=== PATIENT | female | born 1955 | race Caucasian/White ===

== ENCOUNTER 2018-08-04 10:53 | Inpatient (IN) ==
--- NOTE | 2018-08-04 11:15 | ED ---
HPI General Chief Complaint: Shortness of Breath/Dyspnea Stated Complaint: SOB/resp complaint Time Seen by Provider: 08/04/18 11:08 Source: patient Mode of arrival: ambulatory Limitations: no limitations History of Present Illness 63-year-old female states over the past couple days she has had cough and congestion that is led to shortness of breath. She states she has been smoker for multiple years but has not been diagnosed with COPD. She states she has not had inhalers before. She denies any other concurrent complaints at this time. She denies sick contacts. She states she feels worse when she moves around. She denies other modifying factors. She states the nasal drainage just turned dark yellow. Related Data Home Medications Medication Instructions Recorded Confirmed No Known Home Medications 08/04/18 08/04/18 Allergies Allergy/AdvReac Type Severity Reaction Status Date / Time crab Allergy Severe HIVES, Unverified 06/16/17 21:59 DIFFICULTY BREATHING shellfish derived Allergy Severe HIVES, Unverified 06/16/17 21:59 DIFFICULTY BREATHING shrimp Allergy Severe HIVES, Unverified 06/16/17 21:59 DIFFICULTY BREATHING Review of Systems ROS: all other systems reviewed are negative PMFSH History History Provided By: Patient (Denies medical history or medications, states only surgery was a perianal abscess multiple years ago ) Medical History Medical History Patient denies medical problems (Acute) Social History Social History Substance History: Active Abuse Second Hand Smoke Exposure: No Smoking Status: Heavy tobacco smoker Tobacco Type: Cigarettes How Often Do You Have a Drink Containing Alcohol: 4 or more times a week Exam Narrative Exam Narrative: GENERAL: 63 y/o female in no apparent distress SKIN: Focused skin assessment warm/dry. HEAD: Atraumatic. Normocephalic. EYES: Pupils equal and round. No scleral icterus. No injection or drainage. ENT: No nasal bleeding or discharge. Mucous membranes pink and moist. NECK: Trachea midline. CARDIOVASCULAR: Regular rate and rhythm. RESPIRATORY: No accessory muscle use. Faint expiratory wheezing bilaterally. GASTROINTESTINAL: Abdomen soft, non-tender, nondistended. MUSCULOSKELETAL: No obvious deformities. No clubbing. No cyanosis. No edema. NEUROLOGICAL: Awake and alert. Motor grossly within normal limits. Normal speech. PSYCHIATRIC: Appropriate mood and affect; insight and judgment normal. Course Reevaluation(s) Reevaluation #1: Given chest x-ray will check blood work and CT to further evaluate Reevaluation #2: Workup shows critical hyponatremia and pneumonia. Given antibiotics and will admit for further care. Patient updated and agrees to plan Consultations Consultation #1: dr washington agrees to admit Initial Documented Vital Signs Temperature 98.6 F 08/04/18 11:01 Pulse Rate 99 H 08/04/18 11:01 Respiratory Rate 30 H 08/04/18 11:01 Blood Pressure 200/93 H 08/04/18 11:01 Pulse Oximetry 94 L 08/04/18 11:01 Last Documented Vital Signs Temperature 98.6 F 08/04/18 11:01 Pulse Rate 92 H 08/04/18 13:00 Respiratory Rate 20 08/04/18 13:00 Blood Pressure 200/93 H 08/04/18 11:01 Pulse Oximetry 93 L 08/04/18 13:00 Medical Decision Making [facility] Narrative Medical decision making narrative: Will check chest x-ray, influenza and dose with prednisone and DuoNeb and reevaluate Medical Screen Exam Complete: Yes Emergency Medical Condition: Yes Differential Diagnosis Differential Diagnosis: Reactive airway disease, pneumonia, URI Lab Data Lab results reviewed: Yes I reviewed the patient's lab results. Result diagrams: 08/04/18 12:45 08/04/18 12:45 Lab Results 08/04/18 08/04/18 08/04/18 Range/Units 12:45 12:45 12:45 WBC 14.8 H (4.0-11.0) th/mm3 RBC 5.06 (4.00-5.30) mil/mm3 Hgb 16.6 H (11.6-15.3) gm/dL Hct 48.1 H (35.0-46.0) % MCV 95.1 (80.0-100.0) fL MCH 32.8 (27.0-34.0) pg MCHC 34.5 (32.0-36.0) % RDW 13.5 (11.6-17.2) % Plt Count 254 (150-450) th/mm3 MPV 7.3 (7.0-11.0) fL Prelim Diff (Auto) Slide review pending Neut % (Auto) 86.2 H (16.0-70.0) % Lymph % (Auto) 6.4 L (9.0-44.0) % [place] % (Auto) 7.1 (0.0-8.0) % Eos % (Auto) 0.0 (0.0-4.0) % Baso % (Auto) 0.3 (0.0-2.0) % Neut # (Auto) 12.7 H (1.8-7.7) th/mm3 Lymph # (Auto) 1.0 (1.0-4.8) th/mm3 [place] # (Auto) 1.1 H (0.0-0.9) th/mm3 Eos # (Auto) 0.0 (0.0-0.4) th/mm3 Baso # (Auto) 0.0 (0.0-0.2) th/mm3 WBC Differential Manual diff final Seg Neuts % (Manual) 75 H (16-70) % Band Neuts % (Manual) 19 H (0-6) % Lymphocytes % (Manual) 4 L (9-44) % Monocytes % (Manual) 2 (0-8) % Abs Neuts (Manual) 13.9 H (1.8-7.7) th/mm3 Differential Comment . Platelet Estimate Normal (Normal) Platelet Morphology Normal (Normal) PT 10.1 (9.8-11.6) sec INR 1.0 Ratio APTT 27.3 (24.3-30.1) sec Sodium 121 L* (136-145) meq/L Potassium 4.2 (3.5-5.1) meq/L Chloride 82 L (98-107) meq/L Carbon Dioxide 22.9 (21.0-32.0) meq/L Anion Gap 16 H (5-15) meq/L BUN 5 L (7-18) mg/dL Creatinine 0.51 (0.50-1.00) mg/dL Estimated GFR Greater than 89 (>89) mL/min Random Glucose 108 H (74-106) mg/dL Calcium 8.8 (8.5-10.1) mg/dL Imaging Data Attestation: I personally reviewed and interpreted this imaging study as follows : Radiologist's impression: Chest X-Ray 08/04/18 11:10 CONCLUSION: Partial right middle lobe collapse. I have no other prior films comparison. Serial films resolution are suggested. Chest CTA 08/04/18 12:02 CONCLUSION: 1. No evidence of pulmonary embolism. 2. Focal alveolar consolidation is noted involving the right anterior midlung field likely within the right middle lobe consistent with probable lobar pneumonia. Clinical correlation is recommended. 3. Scattered emphysematous changes bilaterally. 4. Cardiomegaly and coronary artery calcifications. 5. 2 low-density lesions within the left lobe of the liver consistent with probable tiny cysts. Discharge Plan Discharge Disposition Patient Disposition: 30 Still Patient Discharge Details Diagnosis: Acute hyponatremia, Pneumonia Physicians Team ED Provider: Manisha Murdock Primary Care Provider: Primary Care Wendi Cordero Rxs /Orders / Referrals /Forms Prescriptions: No Action No Known Home Medications RF: 0 Status ED Status: Pending Admission
--- NOTE | 2018-08-04 11:57 | XR ---
EXAM DATE: 08/04/2018 11:10 AM EDT AGE/SEX: 63 years / Female INDICATIONS: . Short of breath and cough. CLINICAL DATA: This is the patient's initial encounter. Patient reports that signs and symptoms have been present for 3 days and indicates a pain score of 0/10. MEDICAL/SURGICAL HISTORY: . Current smoker. None. COMPARISON: No prior exams available for comparison. FINDINGS: Partial right middle lobe collapse. Left lung clear. No pleural effusion, infiltrate or failure. The heart and pulmonary vascularity are normal. . The portion of the bony skeleton visualized is unremark able. . CONCLUSION: Partial right middle lobe collapse. I have no other prior films comparison. Serial films resolution a re suggested. Electronically signed by: Osmani Nettles MD 08/04/2018 11:55 AM EDT
[2018-08-04 13:05] LABS: Baso % (Auto) 0.3 % (0.0-2.0); Hematocrit 48.1 % (35.0-46.0); Hemoglobin 16.6 gm/dL (11.6-15.3); Lymph % (Auto) 6.4 % (9.0-44.0); Mean Corpuscular HGB Conc 34.5 % (32.0-36.0); Mean Corpuscular Hemoglobin 32.8 pg (27.0-34.0); Mean Corpuscular Volume 95.1 fL (80.0-100.0); Mean Platelet Volume 7.3 fL (7.0-11.0); Mono # (Auto) 1.1 th/mm3 (0.0-0.9); Mono % (Auto) 7.1 % (0.0-8.0); Neut # (Auto) 12.7 th/mm3 (1.8-7.7); Neut % (Auto) 86.2 % (16.0-70.0); Platelet Count 254 th/mm3 (150-450); Red Blood Count 5.06 mil/mm3 (4.00-5.30); Red Cell Distribution Width 13.5 % (11.6-17.2); White Blood Count 14.8 th/mm3 (4.0-11.0)
[2018-08-04 13:21] LABS: Anion Gap 16 meq/L (5-15); Blood Urea Nitrogen 5 mg/dL (7-18); Calcium 8.8 mg/dL (8.5-10.1); Carbon Dioxide 22.9 meq/L (21.0-32.0); Chloride 82 meq/L (98-107); Glomerular Filtration Rate Greater Than 89 mL/min (>89); Glucose,Random 108 mg/dL (74-106); Potassium 4.2 meq/L (3.5-5.1)
[2018-08-04 13:27] LABS: Activated Partial Thrombo Time 27.3 sec (24.3-30.1); Prothrombin Time 10.1 sec (9.8-11.6)
[2018-08-04 13:42] LABS: Sodium 121 meq/L (136-145)
[2018-08-04] MEDS ORDERED: Sodium Chlor 0.9% Inj 500 ML IV.SIG SCH (14:00)
[2018-08-04 14:05] LABS: Lymphocytes 4 % (9-44); Monocytes 2 % (0-8); Platelet Estimate Normal (Normal); Platelet Morphology Normal (Normal)
--- NOTE | 2018-08-04 15:05 | CT ---
EXAM DATE: 08/04/2018 1:59 PM EDT AGE/SEX: 63 years / Female INDICATIONS: Dyspnea CLINICAL DATA: This is the patient's initial encounter. Patient reports that signs and symptoms have been present for 1 day and indicates a pain score of 0/10. MEDICAL/SURGICAL HISTORY: None. None. RADIATION DOSE: 5.03 CTDI (mGy) COMPARISON: No prior exams available for comparison. TECHNIQUE: Volumetric scanning was performed using a multi-row detector CT scanner during bolus infu trudi of 50 ml Omnipaque 350 (iohexol) nonionic water-soluble contrast as a single exam dose. The brian a was post processed with a variety of visualization algorithms including full volume maximum intensi ty projection and sliding thin slab reformation. Using automated exposure control and adjustment of t he mA and/or kV according to patient size, radiation dose was kept as low as reasonably achievable to obtain optimal diagnostic quality images. DICOM format image data is available electronically for r eview and comparison. FINDINGS: Pulmonary Arteries: No filling defects are seen in the pulmonary arteries out to the subsegmental ve ssels. The left and right pulmonary arteries are normal in diameter. Lung: Focal alveolar consolidation is noted involving the right anterior midlung field likely within the right middle lobe consistent with probable lobar pneumonia. Clinical correlation is recommended. Scattered emphysematous changes are noted bilaterally. Effusion: None. Mediastinum: No evidence of mediastinal or hilar adenopathy. The heart is enlarged. Coronary artery calcifications are noted. Other: The axilla is unremarkable. 2 low-density lesions are noted within the left lobe of the liver consistent with probable tiny cysts. CONCLUSION: 1. No evidence of pulmonary embolism. 2. Focal alveolar consolidation is noted involving the right anterior midlung field likely within th e right middle lobe consistent with probable lobar pneumonia. Clinical correlation is recommended. 3. Scattered emphysematous changes bilaterally. 4. Cardiomegaly and coronary artery calcifications. 5. 2 low-density lesions within the left lobe of the liver consistent with probable tiny cysts. Electronically signed by: Victor M Go MD 08/04/2018 3:03 PM EDT
[2018-08-04] MEDS ORDERED: Azithromycin Inj 500 MG in Sodium Chlor 0.9% Inj 250 ML IV.SIG STA (15:07)
[2018-08-04] MEDS ORDERED: Bisacodyl 10 MG Supp RECTAL PRN (15:29)
[2018-08-04] MEDS ORDERED: Acetaminophen 325 MG Tablet PO PRN (15:29)
--- NOTE | 2018-08-04 16:25 | P.HP ---
History of Present Illness Service: Hospitalist Primary Care Physician: No Primary Care Physician Chief Complaint: Shortness of breath, cough, fever History of Present Illness: Ms. Yan is a pleasant 63 year old female with a history of long time tobacco use who presents to the ED on 08/04/2018 due to shortness of breath, purulent cough and subjective fever, chills. She felt like she had a cold one week ago but did not develop much symptoms. However, 3 days prior to this admission, she started to develop dyspnea, fever, chills. Her chronic cough turned to yellowish color. Due to worsening symptoms, she decided to come to the ED. ED workup indicates leukocytosis as well as CT finding of pneumonia. Patient denies any changes in bowel or bladder habits. No Chest pain or abdominal pain. PMH: Undiagnosed COPD PSH: Surgery for perianal abscess Social hx : Smokes 1 ppd, 1-3 drinks a day. No drugs Family hx: Father had prostate cancer as well as throat cancer. Mother had ALS. Inpatient Certification: I certify that the inpatient services were ordered in accordance with Medicare regulations governing the order. This includes certification that hospital inpatient services are reasonable and necessary and in the case of services not specified as inpatient-only under 42 CFR 419.22(n), that they are appropriately provided as inpatient services in accordance to with the 2-midnight benchmark under 43 CFR 412.3(e) Estimated Total Length of Stay (Days): 3 Plans for Post Hospital Care: Home Review of Systems All other systems reviewed negative except as stated in HPI PMFSH - History History Provided By: Patient (Denies medical history or medications, states only surgery was a perianal abscess multiple years ago) - Medical History Medical History: Medical History (Last Reviewed 08/04/18 @ 15:30 by Manisha Murdock MD) Patient denies medical problems - Tobacco History Second Hand Smoke Exposure: No Tobacco Use In Past 30 Days: Yes Smoking Status: Heavy tobacco smoker Tobacco Type: Cigarettes - Alcohol History How Often Do You Have a Drink Containing Alcohol: 4 or more times a week - Substance Use History Substance History: Active Abuse - Substance Use Type Alcohol Status: Active Route Used: By Mouth - Immunization History Tetanus Immunization: Unsure Hx Influenza Vaccine This Season: Unable to Assess Medications and Allergies Active Medications: Active Medications Acetaminophen (Tylenol) 650 mg PO Q4H PRN PRN Reason: Headache, fever, pain 1-4 Al Hydroxide/Mg Hydroxide (Milk Of Magnesia Liq) 30 ml PO Q12H PRN PRN Reason: Mild Constipation Albuterol (Duoneb Neb (Prn)) 1 ampul NEB Q4HR NEB PRN PRN Reason: DYSPNEA Albuterol (Duoneb Neb (Maryann)) 1 ampul NEB Q6HR WHILE AWAKE NEB MARYANN Bisacodyl (Dulcolax Supp) 10 mg RECTAL DAILY PRN PRN Reason: SEVERE CONSITIPATION Enoxaparin Sodium (Lovenox Inj) 40 mg SQ Q24H [facility] Sodium Chloride (Ns Inj) 500 mls @ 0 mls/hr IV.SIG BOLUS [facility] Sodium Chloride (Ns Inj) 1,000 mls @ 100 mls/hr IV.CONT .Q10H [facility] Lactulose (Lactulose Liq) 30 ml PO DAILY PRN PRN Reason: SEVERE CONSITIPATION Levofloxacin (Levaquin) 750 mg PO DAILY [facility] Stop: 08/12/18 08:59 Nicotine (Habitrol 14 Mg Patch.24 Hr) 1 patch T-DERMAL DAILY [facility] Ondansetron HCl (Zofran Inj) 4 mg IV.PUSH Q6H PRN PRN Reason: NAUSEA OR VOMITING Prednisone (Deltasone) 50 mg PO DAILY [facility] Stop: 08/09/18 08:59 Senna/Docusate Sodium (Mariah-Colace) 1 tab PO BID [facility] Sennosides (Senokot) 17.2 mg PO Q12H PRN PRN Reason: Moderate Constipation Temazepam (Restoril) 15 mg PO HS PRN PRN Reason: INSOMNIA Allergies Allergy/AdvReac Type Severity Reaction Status Date / Time crab Allergy Severe HIVES, Verified 08/04/18 20:53 DIFFICULTY BREATHING shellfish derived Allergy Severe HIVES, Verified 08/04/18 20:53 DIFFICULTY BREATHING shrimp Allergy Severe HIVES, Verified 08/04/18 20:53 DIFFICULTY BREATHING Home Medications Medication Instructions Recorded Confirmed Type No Known Home Medications 08/04/18 08/04/18 History Exam Vital signs: Vital Signs 08/04/18 11:01 08/04/18 11:17 08/04/18 11:26 Temperature 98.6 F Pulse Rate 99 H 98 H Respiratory Rate 30 H 22 Blood Pressure 200/93 H Pulse Oximetry 94 L 95 08/04/18 11:28 08/04/18 11:51 08/04/18 13:00 Temperature Pulse Rate 104 H 92 H 92 H Respiratory Rate 25 H 22 20 Blood Pressure Pulse Oximetry 95 93 L Intake & Output 08/03/18 08/04/18 08/04/18 18:59 06:59 18:59 Weight 54.431 kg Narrative: GENERAL: This is a well-nourished, well-developed patient, in no apparent distress. Smell of tobacco is present. SKIN: No rashes, ecchymoses or lesions. Warm and dry. HEAD: Atraumatic. Normocephalic. No temporal or scalp tenderness. EYES: Pupils equal round and reactive. No injection or drainage. ENT: Nose without bleeding, purulent drainage or septal hematoma. Airway patent. NECK: Trachea midline. No lymphadenopathy. Supple, nontender, no meningeal signs. CARDIOVASCULAR: Regular rate and rhythm without murmurs, gallops, or rubs. No JVD. RESPIRATORY: Moderate air entry. Breath sounds equal bilaterally. No wheezes, rales, or rhonchi. GASTROINTESTINAL: Abdomen soft, non-tender, nondistended. No guarding. MUSCULOSKELETAL: Extremities without clubbing, cyanosis, or edema. NEUROLOGICAL: Awake and alert. Cranial nerves II through XII intact. No focal neurological deficits. Normal speech. Results - Labs CBC & Chem 7: 08/04/18 12:45 08/04/18 12:45 Labs: Laboratory Results - last 24 hr 08/04/18 08/04/18 08/04/18 12:45 12:45 12:45 WBC 14.8 H RBC 5.06 Hgb 16.6 H Hct 48.1 H MCV 95.1 MCH 32.8 MCHC 34.5 RDW 13.5 Plt Count 254 MPV 7.3 Prelim Diff (Auto) Slide review pending Neut % (Auto) 86.2 H Lymph % (Auto) 6.4 L [place] % (Auto) 7.1 Eos % (Auto) 0.0 Baso % (Auto) 0.3 Neut # (Auto) 12.7 H Lymph # (Auto) 1.0 [place] # (Auto) 1.1 H Eos # (Auto) 0.0 Baso # (Auto) 0.0 WBC Differential Manual diff final Seg Neuts % (Manual) 75 H Band Neuts % (Manual) 19 H Lymphocytes % (Manual) 4 L Monocytes % (Manual) 2 Abs Neuts (Manual) 13.9 H Differential Comment . Platelet Estimate Normal Platelet Morphology Normal PT 10.1 INR 1.0 APTT 27.3 Sodium 121 L* Potassium 4.2 Chloride 82 L Carbon Dioxide 22.9 Anion Gap 16 H BUN 5 L Creatinine 0.51 Estimated GFR Greater than 89 Random Glucose 108 H Calcium 8.8 - Imaging Impressions Chest X-Ray 08/04/18 11:10 CONCLUSION: Partial right middle lobe collapse. I have no other prior films comparison. Serial films resolution are suggested. Chest CTA 08/04/18 12:02 CONCLUSION: 1. No evidence of pulmonary embolism. 2. Focal alveolar consolidation is noted involving the right anterior midlung field likely within the right middle lobe consistent with probable lobar pneumonia. Clinical correlation is recommended. 3. Scattered emphysematous changes bilaterally. 4. Cardiomegaly and coronary artery calcifications. 5. 2 low-density lesions within the left lobe of the liver consistent with probable tiny cysts. Caprini VTE Risk Assessment Caprini VTE Risk Assessment: Moderate/High Risk (score >= 2) Caprini Risk Assessment Model: Point Value = 1 Point Value = 2 Point Value = 3 Point Value = 5 Age 41-60 Minor surgery BMI > 25 kg/m2 Swollen legs Varicose veins or History of unexplained or recurrent spontaneous Oral contraceptives or hormone replacement Sepsis (< 1 month) Serious lung disease, including pneumonia (< 1 month) Abnormal pulmonary function Acute myocardial infarction Congestive heart failure (< 1 month) History of inflammatory bowel disease Medical patient at bed rest Age 61-74 Arthroscopic surgery Major open surgery (> 45 min) Laparoscopic surgery (> 45 min) Malignancy Confined to bed (> 72 hours) Immobilizing plaster cast Central venous access Age >= 75 History of VTE Family history of VTE Factor V Leiden Prothrombin [id number] Lupus anticoagulant Anticardiolipin antibodies Elevated serum homocysteine Heparin-induced thrombocytopenia Other congenital or acquired thrombophilia Stroke (< 1 month) Elective arthroplasty Hip, pelvis, or leg fracture Acute spinal cord injury (< 1 month) Prophylaxis Regimen: Total Risk Factor Score Risk Level Prophylaxis Regimen 0-1 Low Early ambulation 2 Moderate Order ONE of the following: *Sequential Compression Device (SCD) *Heparin 5000 units SQ BID 3-4 Higher Order ONE of the following medications: *Heparin 5000 units SQ TID *Enoxaparin/Lovenox 40 mg SQ daily (WT < 150 kg, CrCl > 30 mL/min) *Enoxaparin/Lovenox 30 mg SQ daily (WT < 150 kg, CrCl > 10-29 mL/min) *Enoxaparin/Lovenox 30 mg SQ BID (WT < 150 kg, CrCl > 30 mL/min) AND/OR *Sequential Compression Device (SCD) 5 or more Highest Order ONE of the following medications: *Heparin 5000 units SQ TID (Preferred with Epidurals) *Enoxaparin/Lovenox 40 mg SQ daily (WT < 150 kg, CrCl > 30 mL/min) *Enoxaparin/Lovenox 30 mg SQ daily (WT < 150 kg, CrCl > 10-29 mL/min) *Enoxaparin/Lovenox 30 mg SQ BID (WT < 150 kg, CrCl > 30 mL/min) AND *Sequential Compression Device (SCD) Assessment and Plan - Plan Ms. Yan is a pleasant 63 year old female with a history of tobacco abuse who presents to the ED due to cough, fever as well dyspnea. CT Chest shows evidence of pneumonia. Patient also had leukocytosis. Acute right sided pneumonia Acute exacerbation of COPD -DuoNeb scheduled and PRN -Reviewed CXR and CT chest images. -Prednisone 50mg Qday X 5 days -Received Azithromycin and Ceftriaxone. -Currently on room air. Will continue Levaquin 750mg Qday x 7 days. -suppl O2 if needed to maintain O2 sat > 90%. -Patient will likely need help with meds at the time of discharge. Acute hyponatremia -Etiology unknown. Patient is not symptomatic. Goal increase 4-6 over 24 hrs. -Will start patient on NS and re-check tomorrow -Will obtain serum Osm, Urine Osm Tobacco abuse - counselled. Insomnia - Restoril 15mg QHS. Full code. Lovenox. If patient continues to do well and sodium level improves, potentially she can go home on PO meds within next 2-3 days.
[2018-08-04] MEDS: Sod Chloride 0.9% Inj 1,000 ML IV.CONT SCH (17:58)
[2018-08-04] MEDS: Enoxaparin Inj 40 MG/0.4 ML Syringe SQ SCH (18:06)
[2018-08-04] MEDS ORDERED: Influenza (Quadrivalent) Vaccine 0.5 ML Syringe IM ONE (20:00)
[2018-08-04] MEDS: Senna/Docusate Sodium 8.6/50 MG Tablet PO SCH (20:54)
[2018-08-04] MEDS: Temazepam 15 MG Capsule PO PRN (23:23)
[2018-08-05] MEDS: Sod Chloride 0.9% Inj 1,000 ML IV.CONT SCH ×2 (02:05→14:07)
[2018-08-05 08:45] LABS: Baso % (Auto) 0.4 % (0.0-2.0); Hematocrit 42.4 % (35.0-46.0); Hemoglobin 14.5 gm/dL (11.6-15.3); Lymph # (Auto) 1.3 th/mm3 (1.0-4.8); Lymph % (Auto) 15.1 % (9.0-44.0); Mean Corpuscular HGB Conc 34.3 % (32.0-36.0); Mean Corpuscular Hemoglobin 33.2 pg (27.0-34.0); Mean Corpuscular Volume 96.8 fL (80.0-100.0); Mean Platelet Volume 7.5 fL (7.0-11.0); Mono # (Auto) 0.8 th/mm3 (0.0-0.9); Mono % (Auto) 9.5 % (0.0-8.0); Neut # (Auto) 6.7 th/mm3 (1.8-7.7); Platelet Count 242 th/mm3 (150-450); Red Blood Count 4.38 mil/mm3 (4.00-5.30); Red Cell Distribution Width 13.7 % (11.6-17.2); White Blood Count 8.9 th/mm3 (4.0-11.0)
[2018-08-05] MEDS ORDERED: Azithromycin 250 MG Tablet PO SCH (09:00)
[2018-08-05 09:13] LABS: Anion Gap 11 meq/L (5-15); Blood Urea Nitrogen 6 mg/dL (7-18); Calcium 8.2 mg/dL (8.5-10.1); Carbon Dioxide 24.2 meq/L (21.0-32.0); Chloride 98 meq/L (98-107); Glomerular Filtration Rate Greater Than 89 mL/min (>89); Glucose,Random 88 mg/dL (74-106); Potassium 3.8 meq/L (3.5-5.1); Sodium 133 meq/L (136-145)
[2018-08-05] MEDS: levoFLOXacin 750 MG Tablet PO SCH (09:50)
[2018-08-05] MEDS: Senna/Docusate Sodium 8.6/50 MG Tablet PO SCH ×2 (09:51→21:10)
--- NOTE | 2018-08-05 10:40 | P.PNIM ---
Subjective Interval history: Follow-up shortness of breath, pneumonia, hyponatremia, and tobacco abuse. Patient sitting in the bed with a breathing treatment, stated breathing better. Patient admitted she was smoking a pack a day for many years. Patient stated improving shortness of breath, and improving coughing. Patient stated he was coughing up sputum more before today's less. Patient denies any fever or chills , headache or dizziness, denies any nausea or vomiting, denies any diarrhea or constipation. Physical Exam Vital signs: Vital Signs 08/04/18 11:01 08/04/18 11:17 08/04/18 11:26 Temperature 98.6 F Pulse Rate 99 H 98 H Respiratory Rate 30 H 22 Blood Pressure 200/93 H Pulse Oximetry 94 L 95 08/04/18 11:28 08/04/18 11:51 08/04/18 13:00 Temperature Pulse Rate 104 H 92 H 92 H Respiratory Rate 25 H 22 20 Blood Pressure Pulse Oximetry 95 93 L 08/04/18 17:00 08/04/18 20:00 08/04/18 21:07 Temperature 98.4 F Pulse Rate 82 85 82 Respiratory Rate 18 18 18 Blood Pressure 121/73 Pulse Oximetry 95 91 L 95 08/05/18 00:00 08/05/18 04:00 08/05/18 08:00 Temperature 98 F 97.2 F L 97.4 F L Pulse Rate 75 66 72 Respiratory Rate 18 18 21 Blood Pressure 145/107 H 155/83 H 149/88 H Pulse Oximetry 93 L 94 L 94 L 08/05/18 08:40 Temperature Pulse Rate 72 Respiratory Rate 16 Blood Pressure Pulse Oximetry 93 L Intake & Output 08/04/18 08/05/18 08/05/18 18:59 06:59 18:59 Intake Total 850 / 850 920 / 920 Output Total 350 / 350 Balance 850 / 850 570 / 570 Weight 54.431 kg 48.2 kg Intake: IV 850 / 850 800 / 800 NS Inj 1,000 ML @ 100 mls/hr IV 800 / 800 .CONT .Q10H JAIME Rx#:[id number] Azithromycin Inj 500 MG In NS 250 / 250 Inj 250 ML @ 250 mls/hr IV.SIG STAT STA Rx#:[id number] NS Inj 500 ML @ Wide Open IV. 500 / 500 SIG BOLUS JAIME Rx#:[id number] Rocephin Inj 2,000 MG In NS Inj 100 / 100 100 ML @ 200 mls/hr IV.SIG STAT STA Rx#:[id number] Oral 120 / 120 Output: Urine 350 / 350 Other: # Bowel Movements 0 Narrative: GENERAL: Well-developed, well-nourished, alert and oriented x3 in no apparent distress. Tobacco smell is present SKIN: Warm and dry. HEAD: Atraumatic. Normocephalic. EYES: Pupils equal and round. No scleral icterus. No injection or drainage. ENT: No nasal bleeding or discharge. Mucous membranes pink and moist. NECK: Trachea midline. No JVD. CARDIOVASCULAR: Regular rate and rhythm. RESPIRATORY: No accessory muscle use. Expiratory wheezes on auscultation. Breath sounds equal bilaterally. GASTROINTESTINAL: Abdomen soft, non-tender, nondistended. Hepatic and splenic margins not palpable. MUSCULOSKELETAL: Extremities without clubbing, cyanosis, or edema. No obvious deformities. NEUROLOGICAL: Awake and alert. No obvious cranial nerve deficits. Motor grossly within normal limits. Moving all 4 extremities. Normal speech. PSYCHIATRIC: Appropriate mood and affect; insight and judgment normal. Results - Labs CBC & Chem 7: 08/05/18 06:35 08/05/18 06:35 Laboratory Results - last 24 hr 08/04/18 08/04/18 08/04/18 12:45 12:45 12:45 WBC 14.8 H RBC 5.06 Hgb 16.6 H Hct 48.1 H MCV 95.1 MCH 32.8 MCHC 34.5 RDW 13.5 Plt Count 254 MPV 7.3 Prelim Diff (Auto) Slide review pending Neut % (Auto) 86.2 H Lymph % (Auto) 6.4 L [place] % (Auto) 7.1 Eos % (Auto) 0.0 Baso % (Auto) 0.3 Neut # (Auto) 12.7 H Lymph # (Auto) 1.0 [place] # (Auto) 1.1 H Eos # (Auto) 0.0 Baso # (Auto) 0.0 WBC Differential Manual diff final Seg Neuts % (Manual) 75 H Band Neuts % (Manual) 19 H Lymphocytes % (Manual) 4 L Monocytes % (Manual) 2 Abs Neuts (Manual) 13.9 H Differential Comment . Platelet Estimate Normal Platelet Morphology Normal PT 10.1 INR 1.0 APTT 27.3 Sodium 121 L* Potassium 4.2 Chloride 82 L Carbon Dioxide 22.9 Anion Gap 16 H BUN 5 L Creatinine 0.51 Estimated GFR Greater than 89 Random Glucose 108 H Osmolality Calcium 8.8 Urine Osmolality Ur Random Creatinine Ur Random Sodium Ur Random Chloride 08/04/18 08/04/18 08/04/18 12:45 20:25 20:25 WBC RBC Hgb Hct MCV MCH MCHC RDW Plt Count MPV Prelim Diff (Auto) Neut % (Auto) Lymph % (Auto) [place] % (Auto) Eos % (Auto) Baso % (Auto) Neut # (Auto) Lymph # (Auto) [place] # (Auto) Eos # (Auto) Baso # (Auto) WBC Differential Seg Neuts % (Manual) Band Neuts % (Manual) Lymphocytes % (Manual) Monocytes % (Manual) Abs Neuts (Manual) Differential Comment Platelet Estimate Platelet Morphology PT INR APTT Sodium Potassium Chloride Carbon Dioxide Anion Gap BUN Creatinine Estimated GFR Random Glucose Osmolality 249 L Calcium Urine Osmolality 120 L Ur Random Creatinine Less than 13 L Ur Random Sodium 9 Ur Random Chloride Less than 10 08/05/18 08/05/18 06:35 06:35 WBC 8.9 RBC 4.38 Hgb 14.5 D Hct 42.4 MCV 96.8 MCH 33.2 MCHC 34.3 RDW 13.7 Plt Count 242 MPV 7.5 Prelim Diff (Auto) Neut % (Auto) 75.0 H Lymph % (Auto) 15.1 [place] % (Auto) 9.5 H Eos % (Auto) 0.0 Baso % (Auto) 0.4 Neut # (Auto) 6.7 Lymph # (Auto) 1.3 [place] # (Auto) 0.8 Eos # (Auto) 0.0 Baso # (Auto) 0.0 WBC Differential . Seg Neuts % (Manual) Band Neuts % (Manual) Lymphocytes % (Manual) Monocytes % (Manual) Abs Neuts (Manual) Differential Comment Auto diff final Platelet Estimate Platelet Morphology PT INR APTT Sodium 133 L D Potassium 3.8 Chloride 98 D Carbon Dioxide 24.2 Anion Gap 11 BUN 6 L Creatinine 0.41 L Estimated GFR Greater than 89 Random Glucose 88 Osmolality Calcium 8.2 L Urine Osmolality Ur Random Creatinine Ur Random Sodium Ur Random Chloride Microbiology 08/04/18 11:15 Nasal Wash Influenza Types A,B Antigen - Final Negative for FLU A and B antigen Infection due to influenza A or B cannot be ruled out since the antigen present in the sample may be below the detection limit of the test. - Imaging Impressions Chest X-Ray 08/04/18 11:10 CONCLUSION: Partial right middle lobe collapse. I have no other prior films comparison. Serial films resolution are suggested. Chest CTA 08/04/18 12:02 CONCLUSION: 1. No evidence of pulmonary embolism. 2. Focal alveolar consolidation is noted involving the right anterior midlung field likely within the right middle lobe consistent with probable lobar pneumonia. Clinical correlation is recommended. 3. Scattered emphysematous changes bilaterally. 4. Cardiomegaly and coronary artery calcifications. 5. 2 low-density lesions within the left lobe of the liver consistent with probable tiny cysts. Assessment and Plan - Plan Ms. Yan is a pleasant 63 year old female with a history of tobacco abuse who presents to the ED due to cough, fever as well dyspnea. CT Chest shows evidence of pneumonia. Patient also had leukocytosis. Acute right sided pneumonia Acute exacerbation of COPD -CT chest :Focal alveolar consolidation is noted involving the right anterior midlung field likely within the right middle lobe consistent with probable lobar pneumonia. 2 low-density lesions within the left lobe of the liver consistent with probable tiny cysts -CXray: Partial middle lobe collapse -restart after IV solu medrol -Prednisone 50mg Qday X 5 day -Received Azithromycin and Ceftriaxone. -Currently on room air. Will continue Levaquin 750mg Qday x 7 days. -suppl O2 if needed to maintain O2 sat > 90%. -Patient will likely need help with meds at the time of discharge. -DuoNeb scheduled and PRN -give IV solumedrol now for increase wheezes Leukocytosis -WBC was 14.8 on admission today is better 0.9 -no fever or chills -monitor CBC Acute hyponatremia Etiology unknown. Patient is not symptomatic. Goal increase 4-6 over 24 hrs. Improving, was 121, today 133 -serum Osm 249. -Urine Osm 120 -continue on NS -monitor BMP Tobacco abuse - counselled on smoking cessation Insomnia - Restoril 15mg QHS. Full code. Lovenox. If patient continues to do well and sodium level improves, potentially she can go home on PO meds within next 2-3 days. Code Status: Full code Discussed Condition With: Patient and nurse
[2018-08-05] MEDS: MethylPREDNISolone Sod Succinate Inj 40 MG/ML Vial IV.PUSH SCH ×2 (14:05→21:10)
[2018-08-05] MEDS: Enoxaparin Inj 40 MG/0.4 ML Syringe SQ SCH (17:11)
[2018-08-06] MEDS: Temazepam 15 MG Capsule PO PRN ×2 (00:30→23:54)
[2018-08-06] MEDS: Sod Chloride 0.9% Inj 1,000 ML IV.CONT SCH ×3 (00:30→20:24)
[2018-08-06] MEDS: MethylPREDNISolone Sod Succinate Inj 40 MG/ML Vial IV.PUSH SCH ×2 (06:34→16:31)
[2018-08-06] MEDS: levoFLOXacin 750 MG Tablet PO SCH (09:47)
[2018-08-06] MEDS: Senna/Docusate Sodium 8.6/50 MG Tablet PO SCH ×3 (09:47→20:30)
[2018-08-06] MEDS: MethylPREDNISolone Sod Succinate Inj 125 MG/2 ML Vial IV.PUSH SCH ×2 (15:02→23:52)
--- NOTE | 2018-08-06 16:12 | P.PNIM ---
Subjective Interval history: Follow-up shortness of breath, pneumonia, hyponatremia, and tobacco abuse. Patient seen and examined sitting in the bed, stated shortness of breath is better, denies any wheezing. Patient denies any fever or chills, denies any nausea or vomiting, denies any chest pain. Patient stated ready to go home however discussed about the inhaler, stated no inhaler at home. Discussed will start inhaler for home use for coughing and wheezing. Smoking cessation given to patient. Physical Exam Vital signs: Vital Signs 08/05/18 16:00 08/05/18 19:14 08/05/18 20:00 Temperature 97.7 F 98.4 F Pulse Rate 81 85 103 H Respiratory Rate 23 18 18 Blood Pressure 183/85 H 174/87 H Pulse Oximetry 98 95 91 L 08/06/18 00:00 08/06/18 04:00 08/06/18 08:00 Temperature 98.3 F 97.8 F 97.7 F Pulse Rate 81 76 82 Respiratory Rate 18 18 17 Blood Pressure 188/104 H 173/89 H 183/92 H Pulse Oximetry 94 L 91 L 100 08/06/18 08:22 08/06/18 12:00 08/06/18 14:21 Temperature 97.7 F Pulse Rate 81 88 80 Respiratory Rate 17 18 Blood Pressure 161/80 H Pulse Oximetry 96 Intake & Output 08/05/18 08/06/18 08/06/18 18:59 06:59 18:59 Intake Total 1000 / 1000 2561 / 2561 399 / 399 Output Total 1400 / 1400 Balance 1000 / 1000 1161 / 1161 399 / 399 Weight 48.7 kg Intake: IV 1000 / 1000 1601 / 1601 399 / 399 NS Inj 1,000 ML @ 100 mls/hr IV 1000 / 1000 1601 / 1601 399 / 399 .CONT .Q10H JAIME Rx#:[id number] Oral 960 / 960 Output: Urine 1400 / 1400 Other: # Bowel Movements 0 Narrative: GENERAL: Well-developed, well-nourished, alert and oriented x3 in no apparent distress. Tobacco smell is present SKIN: Warm and dry. HEAD: Atraumatic. Normocephalic. EYES: Pupils equal and round. No scleral icterus. No injection or drainage. ENT: No nasal bleeding or discharge. Mucous membranes pink and moist. NECK: Trachea midline. No JVD. CARDIOVASCULAR: Regular rate and rhythm. RESPIRATORY: No accessory muscle use. Clear to auscultation. Breath sounds equal bilaterally. GASTROINTESTINAL: Abdomen soft, non-tender, nondistended. Hepatic and splenic margins not palpable. MUSCULOSKELETAL: Extremities without clubbing, cyanosis, or edema. No obvious deformities. NEUROLOGICAL: Awake and alert. No obvious cranial nerve deficits. Motor grossly within normal limits. Moving all 4 extremities. Normal speech. PSYCHIATRIC: Appropriate mood and affect; insight and judgment normal. Results - Labs CBC & Chem 7: 08/05/18 06:35 08/05/18 06:35 Assessment and Plan - Plan Ms. Yan is a pleasant 63 year old female with a history of tobacco abuse who presents to the ED due to cough, fever as well dyspnea. CT Chest shows evidence of pneumonia. Patient also had leukocytosis. Acute right sided pneumonia Acute exacerbation of COPD -CT chest :Focal alveolar consolidation is noted involving the right anterior midlung field likely within the right middle lobe consistent with probable lobar pneumonia. 2 low-density lesions within the left lobe of the liver consistent with probable tiny cysts -CXray: Partial middle lobe collapse -restart after IV solu medrol -Prednisone 50mg Qday X 5 day -Received Azithromycin and Ceftriaxone. -Currently on room air. Will continue Levaquin 750mg Qday x 7 days. -suppl O2 if needed to maintain O2 sat > 90%. -Patient will likely need help with meds at the time of discharge. -DuoNeb scheduled and PRN -Increased Solu-Medrol today, plan to discharge with on prednisone. -Add Symbicort and albuterol inhaler Leukocytosis -WBC was 14.8 on admission today is better 0.9 -no fever or chills -monitor CBC Acute hyponatremia Etiology unknown. Patient is not symptomatic. Goal increase 4-6 over 24 hrs. Improving, was 121, today 133 -serum Osm 249. -Urine Osm 120 -continue on NS -monitor BMP Tobacco abuse - counselled on smoking cessation Insomnia - Restoril 15mg QHS. Full code. Lovenox. If patient continues to do well and sodium level improves, potentially she can go home on PO meds within next 2-3 days. Code Status: Full code Discussed Condition With: Patient and nurse, MDR Discharge Planning: Plan to discharge in 1 day if blood results remarkable and shortness of breath better after seen by the medicine team
[2018-08-06] MEDS: Enoxaparin Inj 40 MG/0.4 ML Syringe SQ SCH (18:26)
[2018-08-06] MEDS: Budesonide-Formoterol 160/4.5 MCG 6 GM Inhaler INH SCH (20:25)
[2018-08-07 04:59] LABS: Hematocrit 42.9 % (35.0-46.0); Hemoglobin 14.4 gm/dL (11.6-15.3); Mean Corpuscular HGB Conc 33.6 % (32.0-36.0); Mean Corpuscular Hemoglobin 32.2 pg (27.0-34.0); Mean Corpuscular Volume 95.9 fL (80.0-100.0); Platelet Count 337 th/mm3 (150-450); Red Blood Count 4.47 mil/mm3 (4.00-5.30); White Blood Count 10.1 th/mm3 (4.0-11.0)
[2018-08-07 05:15] LABS: Anion Gap 4 meq/L (5-15); Blood Urea Nitrogen 7 mg/dL (7-18); Calcium 8.2 mg/dL (8.5-10.1); Carbon Dioxide 24.4 meq/L (21.0-32.0); Chloride 104 meq/L (98-107); Glomerular Filtration Rate Greater Than 89 mL/min (>89); Glucose,Random 180 mg/dL (74-106); Potassium 3.1 meq/L (3.5-5.1); Sodium 132 meq/L (136-145)
[2018-08-07 05:39] VITALS: TEMP 97.3; O2SAT 91
[2018-08-07] MEDS: MethylPREDNISolone Sod Succinate Inj 125 MG/2 ML Vial IV.PUSH SCH (06:14)
[2018-08-07] MEDS: Sod Chloride 0.9% Inj 1,000 ML IV.CONT SCH (06:20)
--- NOTE | 2018-08-07 09:28 | P.DS ---
Date of admission: 08/04/18 15:29 Primary care physician: No Primary Care Physician Attending physician on discharge: Getachew Dickey Anticipated date of discharge: 08/07/18 Brief History from admission: Ms. Yan is a pleasant 63 year old female with a history of long time tobacco use who presents to the ED on 08/04/2018 due to shortness of breath, purulent cough and subjective fever, chills. She felt like she had a cold one week ago but did not develop much symptoms. However, 3 days prior to this admission, she started to develop dyspnea, fever, chills. Her chronic cough turned to yellowish color. Due to worsening symptoms, she decided to come to the ED. ED workup indicates leukocytosis as well as CT finding of pneumonia. Patient denies any changes in bowel or bladder habits. No Chest pain or abdominal pain. PMH: Undiagnosed COPD PSH: Surgery for perianal abscess Social hx : Smokes 1 ppd, 1-3 drinks a day. No drugs Family hx: Father had prostate cancer as well as throat cancer. Mother had ALS. Patient update on day of discharge: Patient seen and examined denies any chest pain or shortness of breath. Patient stated she is breathing better today. Patient address concern about her no insurance, no primary care provider. Discussed the patient she needs to establish with her own PCP, or follow-up with the community clinic. We will provide the patient the number for community clinic to follow-up. Patient denies any fever or chills, denies any headache or dizziness. Denies any diarrhea or constipation. DS: Diagnosis - Discharge Diagnosis (1) Acute hyponatremia Status: Acute (2) Pneumonia Status: Acute DS: Summary Hospital Course: Ms. Yan is a pleasant 63 year old female with a history of tobacco abuse who presents to the ED due to cough, fever as well dyspnea. CT Chest shows evidence of pneumonia. Patient also had leukocytosis. Patient was treated with IV fluids, antibiotics DuoNeb treatments. Patient started on Symbicort and albuterol inhaler, teaching given to patient. Smoking cessation education given. - Time Spent with Patient Total time spent providing and/or coordinating discharge services: Less than 30 minutes - Quality: VTE Deep Vein Thrombosis/Pulmonary Embolism Present on Admission: No Exam Vital signs: Vital Signs 08/06/18 12:00 08/06/18 14:21 08/06/18 16:00 Temperature 97.7 F Pulse Rate 88 80 73 Respiratory Rate 17 18 Blood Pressure 161/80 H Pulse Oximetry 96 08/06/18 19:20 08/06/18 20:00 08/07/18 00:00 Temperature 97.5 F L Pulse Rate 80 92 H 78 Respiratory Rate 18 17 Blood Pressure 177/94 H Pulse Oximetry 97 95 08/07/18 04:00 08/07/18 07:24 Temperature 97.3 F L Pulse Rate 96 H 79 Respiratory Rate 18 16 Blood Pressure 183/87 H Pulse Oximetry 91 L Intake & Output 08/06/18 08/07/18 08/07/18 18:59 06:59 18:59 Intake Total 879 / 879 2810 / 2810 Output Total 2099 / 2099 600 / 600 Balance -1221 / -1221 2210 / 2210 Weight 50 kg Intake: IV 399 / 399 1969 NS Inj 1,000 ML @ 100 mls/hr IV 399 / 399 1969 .CONT .Q10H JAIME Rx#:[id number] Oral 480 / 480 840 / 840 Output: Urine 2099 600 / 600 Other: Date of Last Bowel Movement 08/03/18 # Bowel Movements 0 0 Narrative: GENERAL: Well-developed, well-nourished, alert and oriented x3 in no apparent distress. Tobacco smell less SKIN: Warm and dry. HEAD: Atraumatic. Normocephalic. EYES: Pupils equal and round. No scleral icterus. No injection or drainage. ENT: No nasal bleeding or discharge. Mucous membranes pink and moist. NECK: Trachea midline. No JVD. CARDIOVASCULAR: Regular rate and rhythm. RESPIRATORY: No accessory muscle use. Clear to auscultation. Breath sounds equal bilaterally. GASTROINTESTINAL: Abdomen soft, non-tender, nondistended. Hepatic and splenic margins not palpable. MUSCULOSKELETAL: Extremities without clubbing, cyanosis, or edema. No obvious deformities. NEUROLOGICAL: Awake and alert. No obvious cranial nerve deficits. Motor grossly within normal limits. Moving all 4 extremities. Normal speech. PSYCHIATRIC: Appropriate mood and affect; insight and judgment normal. Results Procedures completed during hospitalization: CTA of the chest Labs on day of discharge: Labs from last 24 hours 08/07/18 08/07/18 04:35 04:35 WBC 10.1 RBC 4.47 Hgb 14.4 Hct 42.9 MCV 95.9 MCH 32.2 MCHC 33.6 RDW 14.0 Plt Count 337 D MPV 7.0 Sodium 132 L Potassium 3.1 L Chloride 104 Carbon Dioxide 24.4 Anion Gap 4 L BUN 7 Creatinine 0.57 Estimated GFR Greater than 89 Random Glucose 180 H Calcium 8.2 L - Impressions ITS Impressions Chest X-Ray 08/04/18 11:10 CONCLUSION: Partial right middle lobe collapse. I have no other prior films comparison. Serial films resolution are suggested. Chest CTA 08/04/18 12:02 CONCLUSION: 1. No evidence of pulmonary embolism. 2. Focal alveolar consolidation is noted involving the right anterior midlung field likely within the right middle lobe consistent with probable lobar pneumonia. Clinical correlation is recommended. 3. Scattered emphysematous changes bilaterally. 4. Cardiomegaly and coronary artery calcifications. 5. 2 low-density lesions within the left lobe of the liver consistent with probable tiny cysts. Discharge Plan - Discharge Disposition Patient Disposition: 01 Discharge Home - Discharge Condition Condition: Stable - Discharge Order Discharge Orders: Discharge Order (Routine); Ordered 08/07/18 Ordered By: Carlyn Ahuja - Physicians Team Primary Care Provider: Primary Care Physici,No Attending Provider: Getachew Dickey
[2018-08-07] MEDS: Senna/Docusate Sodium 8.6/50 MG Tablet PO SCH (09:40)
[2018-08-07] MEDS: levoFLOXacin 750 MG Tablet PO SCH (09:40)
[2018-08-07] MEDS: Budesonide-Formoterol 160/4.5 MCG 6 GM Inhaler INH SCH (09:40)
[2018-08-07 09:44] VITALS: BP 185/93; RESP 18
[2018-08-07 11:58] VITALS: PULSE 83
== END 2018-08-07 10:40 | disposition home or self-care (01) ==
LOC: NEPC 10:53 → NEDA 15:29 → N04 17:28
PROVIDERS: ADMIT Internal Medicine; ATTEND Internal Medicine